=== PATIENT | male | born 1985 | race Caucasian/White ===

== ENCOUNTER 2016-06-17 10:52 | Emergency (ER) | payer OTHER ==
[~2016-06-17] VITALS: Ht 198.1 cm; Wt 195.1 kg
[~2016-06-17 10:52] MED LIST: NOHOMEMEDICATIONS; PROMETHAZINE12.5 M1 PO
[2016-06-17 12:13] LABS: ABSOLUTE NEUTROPHILS 4.5 thou/uL (1.4-8.2); BASOPHILS 0.6 % (0.0-2.0); EOSINOPHILS 2.1 % (0.0-3.0); HEMATOCRIT 48.5 % (42.0-52.0); HEMOGLOBIN 16.4 gm/dL (14.0-18.0); LYMPHOCYTES 36.5 % (24.0-44.0); MCH 27.6 pg (26.0-34.0); MCHC 33.8 g/dL (28.0-37.0); MCV 81.7 fL (80.0-100.0); MONOCYTES 6.2 % (1.0-8.0); PLATELET COUNT 255 thou/uL (150-400); POLYS 54.6 % (36.0-66.0); RBC 5.94 mil/uL (4.50-6.00); RDW 13.8 % (10.5-14.5); WBC 8.3 thou/uL (4.0-11.0)
[2016-06-17 12:17] LABS: MANUAL DIFF NO
[2016-06-17 12:18] LABS: CALCIUM 8.4 mg/dL (8.5-10.1); CREATININE 0.9 mg/dL (0.7-1.3)
[2016-06-17 12:22] LABS: ALBUMIN 3.5 g/dL (3.4-5.0); DIRECT BILIRUBIN 0.1 mg/dL (<0.1-0.3); POTASSIUM 3.8 mmol/L (3.5-5.1); TOTAL BILIRUBIN 0.8 mg/dL (<0.1-1.0); TOTAL PROTEIN 7.3 g/dL (6.4-8.2)
[2016-06-17 13:40] VITALS: BP 136/75
== END 2016-06-17 13:40 | disposition home or self-care (01) ==
LOC: ER 10:52
PROVIDERS: Emergency Medicine
DX: K42.9 Umbilical hernia without obstruction or gangrene (principal)

== ENCOUNTER 2020-08-14 03:13 | Emergency (ER) | payer OTHER ==
[~2020-08-14] VITALS: Ht 198.1 cm; Wt 190.5 kg
[2020-08-14 04:02] LABS: ABSOLUTE NEUTROPHILS 5.7 thou/uL (1.4-8.2); BASOPHILS 0.7 % (0.0-2.0); EOSINOPHILS 2.2 % (0.0-3.0); HEMATOCRIT 47.4 % (42.0-52.0); HEMOGLOBIN 15.8 gm/dL (14.0-18.0); LYMPHOCYTES 18.9 % (24.0-44.0); MCH 27.8 pg (26.0-34.0); MCHC 33.3 g/dL (28.0-37.0); MCV 83.6 fL (80.0-100.0); MONOCYTES 6.4 % (1.0-8.0); PLATELET COUNT 235 thou/uL (150-400); POLYS 71.8 % (36.0-66.0); RBC 5.67 mil/uL (4.50-6.00)
[2020-08-14 04:08] LABS: ANION GAP 12 mmol/L (7-16); BUN 12 mg/dL (7-18); CALCIUM 8.5 mg/dL (8.5-10.1); CHLORIDE 103 mmol/L (98-107); CO2 26 mmol/L (21-32); CREATININE 0.9 mg/dL (0.7-1.3); GLUCOSE 121 mg/dL (74-106); POTASSIUM 3.5 mmol/L (3.5-5.1); SODIUM 141 mmol/L (136-145)
[2020-08-14 04:13] LABS: ALBUMIN 3.6 g/dL (3.4-5.0); SGOT 23 U/L (15-37); SGPT 45 U/L (16-63); TOTAL BILIRUBIN 1.5 mg/dL (0.2-1.0); TOTAL PROTEIN 7.5 g/dL (6.4-8.2)
[2020-08-14 04:14] LABS: SALICYLATE < 2.8 mg/dL (2.8-20.0)
[2020-08-14 04:27] LABS: AMP/METHAMP Negative (Negative); BARBITURATES Negative (Negative); BENZODIAZEPINES Negative (Negative); COCAINE Negative (Negative); METHADONE Negative (Negative); OPIATES Negative (Negative); PCP Negative (Negative)
--- NOTE | 2020-08-14 07:18 | EKG ---
[place] [address] [facility] [place] [address] ELECTROCARDIOGRAM REPORT Name: JUANY DEAN Room #: REG ER PaolaPaola#: [id number] Admission: 08/14/20 Attend Phys: Discharge: Date of : 81 Report #: [id number] [facility] ED Test Date: 2020-08-14 Test Time: 03:55:39 Pat Name: JUANY DEAN Department: Room: Gender: M [employer]: : 1985 Requested By: Ben Williamson Order Number: [id number] MD: Roberto Kahn Measurements Intervals [place] Rate: 98 P: 35 IA: 194 QRS: 26 QRSD: 111 T: 24 QT: 382 QTc: 488 Interpretive Statements Sinus rhythm Borderline prolonged QT interval No previous ECG available for comparison Electronically Signed On 08-14-2020 7:17:53 CDT by Roberto Kahn [email or web address] <ELECTRONICALLY SIGNED> By: Roberto Kahn MD, [facility] 08/14/20 0717 [id number] Roberto Kahn MD, FACC /EPI
[2020-08-14 08:45] VITALS: BP 156/102
== END 2020-08-14 08:45 ==
LOC: ER 03:13
PROVIDERS: Emergency Medicine
DX: R45.851 Suicidal ideations (principal); Z20.822 Contact with and (suspected) exposure to COVID-19